=== PATIENT | male | born 1995 | race Caucasian/White ===

== ENCOUNTER 2018-03-12 15:42 | Emergency (ER) | payer OTHER ==
[~2018-03-12] VITALS: Ht 172.7 cm; Wt 83.0 kg
[2018-03-12 15:47] VITALS: BP 145/83
== END 2018-03-12 19:30 | disposition left against medical advice (07) ==
LOC: ER 15:42
DX: M54.89 Other dorsalgia (principal); F15.10 Other stimulant abuse, uncomplicated; F17.200 Nicotine dependence, unspecified, uncomplicated; Z53.21 Procedure and treatment not carried out due to patient leaving prior to being seen by health care provider
CPT/HCPCS: 93005

== ENCOUNTER 2018-03-12 23:14 | Emergency (ER) | payer OTHER ==
[~2018-03-12] VITALS: Ht 172.7 cm; Wt 86.0 kg
[2018-03-12] MEDS ORDERED: SODIUM CHLORIDE 0.9% 1,000 ML IV ONE (23:55)
[2018-03-12] MEDS ORDERED: ONDANSETRON HCL 4MG/2ML VIAL IV STA (23:55)
[2018-03-13] MEDS ORDERED: LORAZEPAM 2MG/ML CPJ IV ONE
[2018-03-13 00:16] LABS: BASOPHILS % 0.3 % (0.0-2.0); EOSINOPHILS % 1.6 % (0.0-5.0); HEMOGLOBIN. 15.2 g/dL (14.0-18.0); LYMPHOCYTES % 19.2 % (20.0-50.0); MEAN CORPUSCULAR HEMOGLOBIN 29.3 pg (28.0-32.0); MEAN CORPUSCULAR VOLUME 86.8 fL (80.0-94.0); MEAN PLATELET VOLUME 10.7 fl (7.4-10.4); MONOCYTES % 9.4 % (2.0-8.0); NEUTROPHILS % 69.5 % (40.0-76.0); PLATELET 187 x1000/uL (130-400); RED BLOOD CELL COUNT 5.18 mill/uL (4.7-6.1); RED CELL DISTRIBUTION WIDTH 14.1 % (11.6-14.6)
[2018-03-13 00:23] LABS: CHLORIDE 103 mEq/L (98-107)
[2018-03-13 00:27] LABS: ETHANOL BLOOD < 10 mg/dL; INR 1.2; PARTIAL THROMBOPLASTIN TIME 29.2 sec (23.4-31.0)
[2018-03-13 00:31] LABS: CREATINE KINASE 156 IU/L (39-308)
[2018-03-13 02:24] LABS: CLARITY URINE CLEAR (CLEAR); COLOR URINE YELLOW (YELLOW); KETONES URINE NEGATIVE (NEGATIVE); LEUKOCYTE ESTERASE URINE NEGATIVE (NEGATIVE); NITRITE URINE NEGATIVE (NEGATIVE); OCCULT BLOOD URINE NEGATIVE (NEGATIVE); PH URINE 6.5 (4.5-8.0); PROTEIN URINE NEGATIVE (NEGATIVE); SPECIFIC GRAVITY URINE 1.008 (1.005-1.030)
[2018-03-13 02:32] LABS: *AMPHETAMINES SCREEN URINE PRESUMTIVE POSITIVE (NEGATIVE)
[2018-03-13 02:34] LABS: *BARBITURATES SCREEN URINE NEGATIVE (NEGATIVE); *BENZODIAZEPINES SCREEN URINE NEGATIVE (NEGATIVE); *COCAINE SCREEN URINE NEGATIVE (NEGATIVE); CANNABINOID URINE SCREEN NEGATIVE (NEGATIVE); METHADONE URINE SCREEN NEGATIVE (NEGATIVE); OPIATES URINE SCREEN NEGATIVE (NEGATIVE); PHENCYCLIDINE URINE SCREEN NEGATIVE (NEGATIVE)
[2018-03-13 03:46] VITALS: BP 126/68
== END 2018-03-13 03:48 | disposition home or self-care (01) ==
LOC: ER 23:14
DX: T43.621A Poisoning by amphetamines, accidental (unintentional), initial encounter (principal); R07.9 Chest pain, unspecified; T50.991A Poisoning by other drugs, medicaments and biological substances, accidental (unintentional), initial encounter; F17.200 Nicotine dependence, unspecified, uncomplicated; Y92.9 Unspecified place or not applicable
CPT/HCPCS: 36415; 71045; 80053; 80305; 81003; 82550; 83690; 83880; 84484; 85025; 85610; 85730; 93005; 96361; 96374; 96375; 99285; G0482; J2060; J2405; J7030

== ENCOUNTER 2018-04-01 04:03 | Emergency (ER) | payer OTHER ==
[~2018-04-01] VITALS: Ht 172.7 cm; Wt 87.0 kg
[2018-04-01 05:45] VITALS: BP 113/67
== END 2018-04-01 06:01 | disposition home or self-care (01) ==
LOC: ER 04:03
DX: R07.9 Chest pain, unspecified (principal); F17.200 Nicotine dependence, unspecified, uncomplicated
CPT/HCPCS: 71045; 93005; 99284

== ENCOUNTER 2019-06-06 18:09 | Emergency (ER) | payer MEDICAID, OTHER ==
[~2019-06-06] VITALS: Ht 170.2 cm; Wt 95.0 kg
[2019-06-06 18:20] VITALS: BP 162/84
== END 2019-06-06 22:00 | disposition left against medical advice (07) ==
LOC: ER 18:09
DX: Z53.21 Procedure and treatment not carried out due to patient leaving prior to being seen by health care provider (principal)
CPT/HCPCS: 93005